=== PATIENT | female | born 2000 | race Caucasian/White ===

== ENCOUNTER 2021-01-07 18:39 | Inpatient (IN) ==
[2021-01-07 19:28] LABS: ABS Lymphocytes 1.6 10^3/ul (1.0-4.8); ABS Monocytes 0.5 10^3/ul (0-0.8); ABS Neutrophils 5.7 10^3/ul (1.5-7.7); Eosinophil % 0.6 %; Hematocrit 41 % (35-47); Hemoglobin 14.1 g/dL (12.0-16.0); Lymphocyte % 20.7 %; Mean Corpuscular HGB Conc 34 g/dL (31-36); Mean Corpuscular Hemoglobin 32 pg (27-31); Mean Corpuscular Volume 94 fL (80-97); Mean Platelet Volume 9.1 fL (7.4-10.4); Nucleated Red Blood Cells % 0.1; Platelet Count 201 10^3/uL (150-450); Red Blood Count 4.43 10^6 /uL (3.70-4.87); Red Cell Distribution Width 13 % (10-15); White Blood Count 7.9 10^3/uL (3.5-10.8)
[2021-01-07 19:34] LABS: Urine Appearance Cloudy; Urine Bilirubin Negative (Negative); Urine Blood 3+ (Negative); Urine Color Straw; Urine Glucose Negative (Negative); Urine Ketones Negative (Negative); Urine Nitrite Negative (Negative); Urine Protein Negative (Negative); Urine Specific Gravity 1.004 (1.002-1.030); Urine Urobilinogen Negative (Negative)
[2021-01-07 19:37] LABS: Urine Bacteria 1+ (Absent); Urine Red Blood Cell Trace(0-2/hpf) (Absent); Urine Squamous Epithelial Cell Present (Absent); Urine White Blood Cell Trace(0-5/hpf) (Absent)
[2021-01-07 20:12] LABS: Acetaminophen < 15 mcg/mL; Alcohol, S 12 mg/dL (<10); Salicylate < 2.50 mg/dL (<30)
[2021-01-07 20:13] LABS: Urine Benzodiazepine Screen None Detected (None Detect); Urine Cannabinoids Screen None Detected (None Detect); Urine Opiates Screen None Detected (None Detect)
[2021-01-07 20:18] LABS: Albumin 4.6 g/dL (3.2-5.2); CO2 Carbon Dioxide 19 mmol/L (22-32); Calcium 9.1 mg/dL (8.6-10.3); Chloride 105 mmol/L (101-111); Sodium 136 mmol/L (135-145)
[2021-01-07 20:24] LABS: ALT 9 U/L (7-52); Albumin/Globulin Ratio 1.8 (1-3); Alkaline Phosphatase 53 U/L (35-149); Blood Urea Nitrogen 8 mg/dL (6-24); EGFR Non-African American 103.3 (>60); Globulin 2.6 g/dL (2-4); Glucose 82 mg/dL (70-100); Total Protein 7.2 g/dL (6.4-8.9)
[2021-01-07 20:26] LABS: TSH Ultra Thyroid Stim Horm 1.37 mcIU/mL (0.34-5.60)
[2021-01-07 20:29] LABS: Anion Gap 12 mmol/L (2-11)
[2021-01-08 01:49] LABS: AST Redraw 13 U/L (13-39); Potassium Redraw 3.6 mmol/L (3.5-5.0)
[2021-01-08 01:56] LABS: HCG Pregnancy < 0.60 mIU/mL
[2021-01-08] MEDS ORDERED: Al Hydrox/Mg Hydrox/Simet LIQ 30 ML UDC PO PRN (02:37)
[2021-01-08 08:25] LABS: HDL Cholesterol 67.6 mg/dL
[2021-01-08] MEDS: Vitamin THERAPEUTIC TAB PO SCH (12:40)
[2021-01-08] MEDS ORDERED: Nicotine GUM 2MG FRUIT FLAVOR PO PRN (13:57)
[2021-01-09] MEDS: Vitamin THERAPEUTIC TAB PO SCH (09:58)
[2021-01-10] MEDS: Vitamin THERAPEUTIC TAB PO SCH (09:04)
[2021-01-11] MEDS: Vitamin THERAPEUTIC TAB PO SCH (08:52)
[2021-01-12] MEDS: Vitamin THERAPEUTIC TAB PO SCH (08:56)
[2021-01-13 08:19] VITALS: BP 116/63
[2021-01-13] MEDS: Vitamin THERAPEUTIC TAB PO SCH (08:52)
== END 2021-01-13 13:05 | disposition home or self-care (01) ==
LOC: ED 18:39 → BSU 23:09
PROVIDERS: ADMIT Psychiatry & Neurology Psychiatry; ATTEND Psychiatry & Neurology Psychiatry